=== PATIENT | male | born 1990 | race Caucasian/White ===

== ENCOUNTER 2017-12-12 15:34 | Inpatient (IN) | payer OTHER ==
[~2017-12-12] VITALS: Ht 170.2 cm; Wt 72.8 kg
[2017-12-12 16:40] LABS: BASOPHIL % 0.3 % (0-2)
[2017-12-12 16:45] LABS: PLATELET COUNT 491 x10^3mcL (130-400); RED CELL DISTRIBUTION WIDTH 14.7 % (11.5-14.5)
[2017-12-12 16:49] LABS: CHLORIDE SERUM 102 mmol/L (98-107); POTASSIUM SERUM 3.5 mmol/L (3.5-5.1); SODIUM SERUM 141 mmol/L (136-145)
[2017-12-12 16:50] LABS: CREATININE SERUM 0.2 mg/dL (0.7-1.3); GFR1 > 60 mL/min; GLUCOSE SERUM 92 mg/dL (74-106)
[2017-12-12 16:54] LABS: ALBUMIN 3.6 g/dL (3.4-5.0); TOTAL PROTEIN, SERUM 7.5 g/dL (6.4-8.2)
[2017-12-12 16:55] LABS: ALKALINE PHOSPHATASE 116 U/L (46-116); ALT/SGPT 91 U/L (16-63); AST/SGOT 43 U/L (15-37); BILIRUBIN TOTAL 0.5 mg/dL (0.20-1.00); CALCIUM 8.8 mg/dL (8.5-10.1)
[2017-12-12] MEDS ORDERED: CYMBALTA20 M1 PO (17:12)
[2017-12-12] MEDS ORDERED: PREDNISONE10 MG PO (17:12)
[2017-12-12] MEDS ORDERED: SEROQUEL200 MG PO (17:13)
[2017-12-12] MEDS ORDERED: BUS10 PO (17:13)
[2017-12-12 17:50] VITALS: BP 105/65
[2017-12-12 18:03] VITALS: BP 124/86
[2017-12-12 18:52] LABS: MAGNESIUM 2.1 mg/dL (1.8-2.4); PHOSPHOROUS 3.1 mg/dL (2.5-4.9)
[2017-12-12 18:53] LABS: CHOLESTEROL/HDL RATIO 2.6
[2017-12-12 19:01] LABS: T3 TOTAL 0.72 ng/mL
[2017-12-12 19:02] LABS: FREE T4 1.05 ng/dL (0.76-1.46); FREE THYROXINE INDEX 2.2 ug/dL (1.4-4.5)
[2017-12-12 20:55] VITALS: BP 120/86
[2017-12-13] VITALS (7 sets, daily range): BP systolic 93–122; BP diastolic 50–82
[2017-12-13 02:52] LABS: microscopic required? NO
[2017-12-13 03:35] LABS: UA SPECIFIC GRAVITY 1.025 (1.005-1.035); urine erythrocyte NEGATIVE (NEGATIVE)
[2017-12-13 03:50] LABS: AMPHETAMINE QUAL UR NONE DETECTED (NEG <=1000)
[2017-12-13 06:23] LABS: CALCIUM 7.1 mg/dL (8.5-10.1); CARBON DIOXIDE 24.5 mmol/L (21-32); CHLORIDE SERUM 103 mmol/L (98-107); CREATININE SERUM 0.1 mg/dL (0.7-1.3); GFR1 > 60 mL/min; GLUCOSE SERUM 83 mg/dL (74-106); MAGNESIUM 1.9 mg/dL (1.8-2.4); PHOSPHOROUS 2.1 mg/dL (2.5-4.9); POTASSIUM SERUM 3.4 mmol/L (3.5-5.1); SODIUM SERUM 136 mmol/L (136-145)
[2017-12-13 07:09] LABS: BASOPHIL % 0.1 % (0-2); PLATELET COUNT 386 x10^3mcL (130-400); RED CELL DISTRIBUTION WIDTH 14.3 % (11.5-14.5)
[2017-12-14 05:28] VITALS: BP 100/56
[2017-12-14 05:54] LABS: PLATELET COUNT 373 x10^3mcL (130-400); RED CELL DISTRIBUTION WIDTH 14.2 % (11.5-14.5)
[2017-12-14 06:30] LABS: BASOPHIL % 0 % (0-2)
[2017-12-14 06:32] LABS: CALCIUM 8.1 mg/dL (8.5-10.1); CHLORIDE SERUM 108 mmol/L (98-107); CREATININE SERUM 0.1 mg/dL (0.7-1.3); GFR1 > 60 mL/min; GLUCOSE SERUM 121 mg/dL (74-106); PHOSPHOROUS 2.7 mg/dL (2.5-4.9); POTASSIUM SERUM 4.3 mmol/L (3.5-5.1); SODIUM SERUM 142 mmol/L (136-145)
[2017-12-14 10:33] VITALS: BP 118/80
[2017-12-14 14:32] VITALS: BP 127/77
[2017-12-14] MEDS ORDERED: LEVAQUIN750 MG PO (15:00)
[2017-12-14] MEDS ORDERED: CLEOCIN HCL300 MG PO (15:00)
[2017-12-14] MEDS ORDERED: LAC PO (15:01)
[2017-12-14] MEDS ORDERED: MIRUD PO (17:21)
[2017-12-14 17:53] VITALS: BP 118/79
[2017-12-14 18:52] LABS: BASOPHIL % 0 % (0-2); PLATELET COUNT 424 x10^3mcL (130-400); RED CELL DISTRIBUTION WIDTH 14.8 % (11.5-14.5)
[2017-12-14 19:54] VITALS: BP 118/79
== END 2017-12-14 20:46 | disposition home or self-care (01) | DRG 720 ==
LOC: ED 15:34 → DU 16:58
PROVIDERS: Emergency Medicine; Family Medicine
DX: A41.9 Sepsis, unspecified organism (principal); N17.0 Acute kidney failure with tubular necrosis; G12.21 Amyotrophic lateral sclerosis; J69.0 Pneumonitis due to inhalation of food and vomit; R65.20 Severe sepsis without septic shock; E87.6 Hypokalemia; E83.39 Other disorders of phosphorus metabolism; Z99.3 Dependence on wheelchair; F32.9 Major depressive disorder, single episode, unspecified; F41.9 Anxiety disorder, unspecified
CPT/HCPCS: 36600; 83880; 84439; 85378; 94150; J0696; J1644; J1956; J2920; J3475; J3490; J7030; J7040; J7050; J7512; J7620; Q0092; Q9967